=== PATIENT | male | born 1940 | race Caucasian/White ===

== ENCOUNTER 2019-07-04 11:31 | Emergency (ER) | payer MEDICARE ==
[2019-07-04 11:58] VITALS: BP 131/82
--- NOTE | 2019-07-04 12:19 | UC ---
Respiratory Complaint HPI - HPI Summary HPI Summary: cough x 4 days cough is productive with yellow / brown sputum worse with deep breathing , better with rest nasal congestion, no fever, no chills + SOB - History of Current Complaint Chief Complaint: UCRespiratory Stated Complaint: COUGH/CONGESTION Time Seen by Provider: 07/04/19 11:48 Hx Obtained From: Patient Onset/Duration: Gradual Onset, Lasting Days - 4, Still Present Timing: Constant Severity Initially: Moderate Severity Currently: Moderate Pain Intensity: 0 Pain Scale Used: 0-10 Numeric Character: Cough: Productive Aggravating Factors: Exertion, Deep Breaths Alleviating Factors: Nothing Associated Signs And Symptoms: Positive: Dyspnea, URI, Nasal Congestion. Negative: Fever, Chills, Pleuritic Chest Pain, Wheezing, Hemoptysis - Allergies/Home Medications Allergies/Adverse Reactions: Allergies Allergy/AdvReac Type Severity Reaction Status Date / Time No Known Allergies Allergy Verified 07/04/19 11:54 Home Medications: Home Medications Albuterol inh POWDER (NF) [Proair Respiclick] 1 puff INH DAILY PRN 07/04/19 [ History Confirmed 07/04/19] Alendronate Sodium [Fosamax-] 70 mg PO WEEKLY 07/04/19 [History Confirmed ] Atorvastatin* [Lipitor*] 10 mg PO DAILY 07/04/19 [History Confirmed 07/04/19] Carvedilol TAB* [Coreg TAB*] 6.25 mg PO BID 07/04/19 [History Confirmed 07/04/19 ] Fluticasone/Umeclidin/Vilanter [Trelegy Ellipta 100-62.5-25] 1 puff INH BID 01/14 [History Confirmed 07/04/19] Furosemide TAB* [Lasix TAB*] 20 mg PO DAILY 07/04/19 [History Confirmed 07/04/19 ] Levothyroxine TAB* [Synthroid TAB*] 125 mcg PO 0800 07/04/19 [History Confirmed 07/04/19] Sacubitril/Valsartan [Entresto 24 mg-26 mg Tablet] 1 each PO DAILY 07/04/19 [ History Confirmed 07/04/19] Tamsulosin CAP* [Flomax CAP*] 0.4 mg PO DAILY 07/04/19 [History Confirmed ] PMH/Surg Hx/FS Hx/Imm Hx - Additional Past Medical History Additional PMH: aortic valve replacement Cardiovascular History: Cardiac Disease Respiratory History: COPD - Surgical History Surgical History: Yes Surgery Procedure, Year, and Place: aortic valve replacement. pacemaker - Family History Known Family History: Positive: Hypertension - Social History Alcohol Use: None Substance Use Type: None Smoking Status (MU): Former Smoker Review of Systems All Other Systems Reviewed And Are Negative: Yes Constitutional: Positive: Negative Skin: Positive: Negative Eyes: Positive: Negative ENT: Positive: Nasal Discharge Respiratory: Positive: Cough Cardiovascular: Positive: Negative Is Patient Immunocompromised?: No Physical Exam Triage Information Reviewed: Yes Appearance: Well-Appearing, No Pain Distress, Well-Nourished Vital Signs: Initial Vital Signs Temp 98.2 F 07/04/19 11:51 Pulse 85 07/04/19 11:51 Resp 24 07/04/19 11:51 BP 131/82 07/04/19 11:51 Pulse Ox 97 07/04/19 11:51 Vital Signs Reviewed: Yes Eye Exam: Normal Eyes: Positive: Conjunctiva Clear ENT: Positive: Normal ENT inspection, Hearing grossly normal, Pharynx normal, Nasal congestion, Nasal drainage Neck: Positive: Supple, Nontender, No Lymphadenopathy Respiratory: Positive: Chest non-tender, Decreased breath sounds Cardiovascular: Positive: RRR, Other: - + click Skin Exam: Normal Respiratory Course/Dx - Differential Dx/Diagnosis Provider Diagnosis: Bronchitis Discharge ED - Sign-Out/Discharge Documenting (check all that apply): Patient Departure All imaging exams completed and their final reports reviewed: No Studies - Discharge Plan Condition: Stable Disposition: HOME Prescriptions: DOXYcycline CAP(*) [DOXYcycline 100MG CAP(*)] 100 mg PO BID #20 cap Patient Education Materials: Acute Bronchitis (ED) Referrals: Jesus Khalil MD [Primary Care Provider] - 7 Days - Billing Disposition and Condition Condition: STABLE Disposition: Home
== END 2019-07-04 12:14 | disposition home or self-care (01) ==
LOC: UCCORT 11:31
DX: J40 Bronchitis, not specified as acute or chronic (principal); J44.9 Chronic obstructive pulmonary disease, unspecified; Z95.0 Presence of cardiac pacemaker; Z87.891 Personal history of nicotine dependence; Z95.2 Presence of prosthetic heart valve
CPT/HCPCS: 99202; G0463